=== PATIENT | female | born 1955 ===

== ENCOUNTER 2019-08-19 10:00 | Inpatient (IN) | payer OTHER ==
[~2019-08-19] VITALS: Ht 162.6 cm; Wt 56.2 kg
[2019-08-19] MEDS ORDERED: TOPROL XL25 M1 PO (11:21)
[2019-08-19] MEDS ORDERED: NORVASC2.5 M1 PO (11:21)
== END 2019-08-23 09:47 | disposition home or self-care (01) | DRG 743 ==
LOC: OB/GYN 08-22 05:44 → O/R 08-22 05:44 → SURH 08-22 07:00 → O/R 08-22 10:00 → SURH 08-22 10:00 → OB/GYN 08-22 10:21
PROVIDERS: ADMIT Obstetrics & Gynecology Gynecologic Oncology
PROC: 0UT74ZZ Resection of Bilateral Fallopian Tubes, Percutaneous Endoscopic Approach (ICD-10-PCS; 2019-08-22)
PROC: 0UT24ZZ Resection of Bilateral Ovaries, Percutaneous Endoscopic Approach (ICD-10-PCS; 2019-08-22)
PROC: 0UT94ZZ Resection of Uterus, Percutaneous Endoscopic Approach (ICD-10-PCS; principal; 2019-08-22 07:00)
DX: D25.1 Intramural leiomyoma of uterus (principal); N72 Inflammatory disease of cervix uteri; N94.89 Other specified conditions associated with female genital organs and menstrual cycle; N85.8 Other specified noninflammatory disorders of uterus; N83.291 Other ovarian cyst, right side; I10 Essential (primary) hypertension